=== PATIENT | male | born 1940 | race Caucasian/White ===

== ENCOUNTER 2018-02-19 14:04 | Emergency (ER) | payer MEDICARE ==
[~2018-02-19] VITALS: Ht 182.9 cm; Wt 93.0 kg
--- OUTSIDE RECORDS SUMMARY | 2018-02-19 14:09 | XMS REPORT ---
Author Author RUDY MCGILL Organization [facility] Address [address] [place] [address] Care Team Providers Care Wrister Name Role Phone RUDY MCGILL Unavailable PROBLEMS Unknown Problems ALLERGIES No Information ENCOUNTERS Encounter Location Date Diagnosis [facility] [address] [facility] [id number] [address] Jan, [facility] [address] [facility] [id number], [place] [address] Jan, IMMUNIZATIONS No Known Immunizations SOCIAL HISTORY Never Assessed REASON FOR VISIT narcotic refill PLAN OF CARE VITAL SIGNS MEDICATIONS Medication Instructions Dosage Frequency Start Date End Date Duration Status Hydrocodone-Acetaminophen 5-325 MG Orally every 4-6 hours as needed 1 tablet as needed Jan, 7 days Active RESULTS No Results PROCEDURES No Known procedures INSTRUCTIONS MEDICATIONS ADMINISTERED No Known Medications MEDICAL (GENERAL) HISTORY Type Description Date Surgical History cholecystectomy Surgical History pacemaker placement Surgical History stent placement Surgical History pacemaker batter change X2 Surgical History VA Cystourethroscopy Surgical History cystoscopy Surgical History Cysctourethroscopy left Surgical History VA drain skin abscess simple Surgical History pr ERCP, RMV FB/Change stent left Surgical History Stent removal Surgical History VA fragment kidney stone/eswl left Surgical History Extracorporeal shock wave lithotripsy left renal
[2018-02-19 14:28] LABS: BASOPHILS % (AUTO) 0 % (0-10); EOSINOPHILS % (AUTO) 0 % (0-10); HEMATOCRIT 32 % (40-54); HEMOGLOBIN 11.2 G/DL (13.3-17.7); LYMPHOCYTES # (AUTO) 0.4 X 10^3 (1.0-4.0); LYMPHOCYTES % (AUTO) 2 % (12-44); MEAN CORPUSCULAR HEMOGLOBIN 32 PG (25-34); MEAN CORPUSCULAR HGB CONC 36 G/DL (32-36); MEAN CORPUSCULAR VOLUME 90 FL (80-99); MEAN PLATELET VOLUME 10.3 FL (7.4-10.4); MONOCYTES # (AUTO) 0.4 X 10^3 (0.0-1.0); MONOCYTES % (AUTO) 2 % (0-12); NEUTROPHILS # (AUTO) 19.8 X 10^3 (1.8-7.8); NEUTROPHILS % (AUTO) 96 % (42-75); PLATELET COUNT 208 10^3/uL (130-400); RED CELL DISTRIBUTION WIDTH 18.6 % (10.0-14.5); WHITE BLOOD COUNT 20.7 10^3/uL (4.3-11.0)
[2018-02-19] MEDS: DEXTROSE 50% 50 ML (IMS) SYR IV ONE ×2 (14:30→17:05)
[2018-02-19] MEDS: DEXTROSE 50% 50 ML (IMS) SYR ONE (14:30)
[2018-02-19] MEDS: NS IV 1000 ML 1,000 ML IV ONE (14:35)
[2018-02-19 14:46] LABS: ALBUMIN 2.1 GM/DL (3.2-4.5); BILIRUBIN,TOTAL 2.9 MG/DL (0.1-1.0); CREATININE SERUM 2.14 MG/DL (0.60-1.30); TOTAL PROTEIN 6.1 GM/DL (6.4-8.2)
[2018-02-19 14:48] LABS: ANISOCYTOSIS MODERATE; BAND NEUTROPHILS 16 %; LYMPHOCYTES % (MANUAL) 1 %; MICROCYTOSIS SLIGHT; MONOCYTES % (MANUAL) 1 %; NEUTROPHILS % (MANUAL) 82 %; POIKILOCYTOSIS SLIGHT
[2018-02-19 14:49] LABS: CRENATED RBC SLIGHT; SCHISTOCYTES SLIGHT; TOXIC GRANULATION/VACUOLAZATIO 1+
[2018-02-19 14:51] LABS: INR 6.7 (0.8-1.4); PROTHROMBIN TIME PATIENT 59.1 SEC (12.2-14.7)
[2018-02-19 14:52] LABS: BILIRUBIN,URINE NEGATIVE (NEGATIVE); CLARITY,URINE SLIGHTLY CLOUDY; COLOR,URINE AMBER; GLUCOSE, URINE (UA) NEGATIVE (NEGATIVE); KETONES,URINE NEGATIVE (NEGATIVE); LEUKOCYTE ESTERASE ,URINE 1+ (NEGATIVE); NITRITE,URINE NEGATIVE (NEGATIVE); PH,URINE 7 (5-9); PROTEIN,URINE 2+ (NEGATIVE); UROBILINOGEN,URINE 1 MG/DL (NORMAL)
[2018-02-19] MEDS: fentaNYL INJECTION 100 MCG/2 ML AMP IVP ONE ×2 (14:58→17:05)
[2018-02-19] MEDS: fentaNYL INJECTION 100 MCG/2 ML AMP ONE (14:58)
[2018-02-19 15:05] LABS: BACTERIA,URINE LARGE /HPF; WBC,URINE 0-2 /HPF
--- NOTE | 2018-02-19 15:09 | ED General ---
General Chief Complaint: General Problems/Pain Stated Complaint: AMS;WEAKNESS Nursing Triage Note: pt brought in by ems from via [facility] with complaint of altered mental status, decreased o2 sats, and low blood sugar. pt has been at [facility] for a week and has had decrease in mentation. pt is complaining of low back pain. for ems, pts blood glucose was 57. given oral glucose. Nursing Sepsis Screen: No Definite Risk Source of Information: Patient, Caregiver, EMS, Retirement Records Exam Limitations: No Limitations History of Present Illness Date Seen by Provider: Feb 19, 2018 Time Seen by Provider: 14:06 Initial Comments This 78-year-old man presents to the emergency room via [facility] with primary complaint of altered mental status. He has been a resident for about one week and has had declining mental status during that time. Staff reports he seems lethargic. He reportedly was hypoxic with an oxygen saturation of 83 percent. EMS notes vital signs are stable with oxygen saturations in the upper 90s on room air. Review of his chart notes he has had multiple hypotensive measurements over the past few days. Patient complains of lower back and lower abdominal pain. His INR measured at the long-term was 6.0. He is on warfarin therapy for atrial fibrillation. EMS reported fingerstick blood sugar was 61. Oral glucose was given. Blood sugar on assessment was 57. Patient states he is in the long-term because of falls. He has dressings on his lower extremities and apparently has chronic lower extremity skin wounds. Allergies and Home Medications Allergies Coded Allergies: No Known Drug Allergies (Unverified , 02/19/18) Patient Home Medication List Home Medication List Reviewed: Yes Review of Systems Review of Systems Constitutional: no symptoms reported EENTM: no symptoms reported Respiratory: see HPI Cardiovascular: no symptoms reported Gastrointestinal: no symptoms reported Genitourinary: no symptoms reported Musculoskeletal: see HPI Skin: no symptoms reported Psychiatric/Neurological: See HPI Hematologic/Lymphatic: No Symptoms Reported Immunological/Allergic: no symptoms reported Past Tkiudar-Pcrrdq-Uvolem Hx Past Med/Social Hx: Reviewed and Corrections made Patient Social History Alcohol Use: Denies Use Recreational Drug Use: No Smoking Status: Never a Smoker Recent Foreign Travel: No Contact w/Someone Who Travel: No Recent Infectious Disease Expo: No Recent Hopitalizations: No Immunizations Up To Date Tetanus Booster (TDap): Unknown Seasonal Allergies Seasonal Allergies: No Past Medical History Surgeries: Yes Gallbladder, Pacemaker Respiratory: No Cardiac: Yes (pacemaker) Atrial Fibrillation, Heart Murmur, Hypertension Neurological: No Genitourinary: Yes UTI-Chronic Gastrointestinal: Yes Abdominal Hernia Musculoskeletal: Yes Chronic Back Pain Endocrine: Yes Diabetes, Non-Insulin dep HEENT: No Cancer: No Psychosocial: No Integumentary: Yes (chronic lower extremity skin wounds) Physical Exam Vital Signs Vital Signs - First Documented 02/19/18 02/19/18 14:08 16:40 Temp 99.3 Pulse 71 Resp 17 B/P (MAP) 105/53 (70) Pulse Ox 94 O2 Delivery Room Air O2 Flow Rate 2.00 Capillary Refill : Less Than 3 Seconds Height, Weight, BMI Height: 6'0" Weight: 205lbs. oz. 92.329388ph; BMI Method:Stated General Appearance: WD/WN, Mild Distress (from back pain) HEENT: PERRL/EOMI, Normal ENT Inspection, Pharynx Normal Neck: Normal Inspection Respiratory: Lungs Clear, Normal Breath Sounds, No Accessory Muscle Use, No Respiratory Distress Cardiovascular: Systolic Murmur, Irregularly Irregular, Other (lower extremity edema bilaterally) Gastrointestinal: Normal Bowel Sounds, Soft, Tenderness (suprapubic region) Extremity: Swelling, Other (dressings on lower extremities below the knee) Neurologic/Psychiatric: Alert, Oriented x3 (disoriented to place), No Motor/ Sensory Deficits, Normal 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, 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 as 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 Skin: Normal Color, Warm/Dry, Other (chronic wounds on the lower extremities that are dressed) Focused Exam Lactate Level 02/19/18 15:47: Lactic Acid Level 5.61*H Lactic Acid Level Laboratory Tests Test 02/19/18 15:47 Lactic Acid Level 5.61 MMOL/L (0.50-2.00) *H Progress/Results/Core Measures Suspected Sepsis Recent Fever Within 48 Hours: No Infection Criteria Present: None New/Unexplained Altered Menta: No Sepsis Screen: No Definite Risk SIRS Temperature:99.3 Pulse: 71 Respiratory Rate: 17 Laboratory Tests 02/19/18 14:15: White Blood Count 20.7H Blood Pressure 105 /53 Mean: 70 02/19/18 15:47: Lactic Acid Level 5.61*H Laboratory Tests 02/19/18 14:15: Creatinine 2.14H, INR Comment 6.7*H, Platelet Count 208, Total Bilirubin 2.9H Results/Orders Lab Results Laboratory Tests Test 02/19/18 14:15 02/19/18 14:16 02/19/18 14:35 02/19/18 14:40 Range/Units White Blood Count 20.7 H 4.3-11.0 10^3/uL Red Blood Count 3.50 L 4.35-5.85 10^6/uL Hemoglobin 11.2 L 13.3-17.7 G/DL Hematocrit 32 L 40-54 % Mean Corpuscular Volume 90 80-99 FL Mean Corpuscular Hemoglobin 32 25-34 PG Mean Corpuscular Hemoglobin Concent 36 32-36 G/DL Red Cell Distribution Width 18.6 H 10.0-14.5 % Platelet Count 208 130-400 10^3/uL Mean Platelet Volume 10.3 7.4-10.4 FL Neutrophils (%) (Auto) 96 H 42-75 % Lymphocytes (%) (Auto) 2 L 12-44 % Monocytes (%) (Auto) 2 0-12 % Eosinophils (%) (Auto) 0 0-10 % Basophils (%) (Auto) 0 0-10 % Neutrophils # (Auto) 19.8 H 1.8-7.8 X 10^3 Lymphocytes # (Auto) 0.4 L 1.0-4.0 X 10^3 Monocytes # (Auto) 0.4 0.0-1.0 X 10^3 Eosinophils # (Auto) 0.0 0.0-0.3 10^3/uL Basophils # (Auto) 0.0 0.0-0.1 10^3/uL Neutrophils % (Manual) 82 % Lymphocytes % (Manual) 1 % Monocytes % (Manual) 1 % Band Neutrophils 16 % Toxic Granulation 1+ Poikilocytosis SLIGHT Anisocytosis MODERATE Microcytosis SLIGHT Macrocytosis SLIGHT Crenated Cell SLIGHT Schistocytes SLIGHT Prothrombin Time 59.1 *H 12.2-14.7 SEC INR Comment 6.7 *H 0.8-1.4 Sodium Level 128 L 135-145 MMOL/L Potassium Level 5.0 3.6-5.0 MMOL/L Chloride Level 94 L 98-107 MMOL/L Carbon Dioxide Level 21 21-32 MMOL/L Anion Gap 13 5-14 MMOL/L Blood Urea Nitrogen 49 H 7-18 MG/DL Creatinine 2.14 H 0.60-1.30 MG/DL Estimat Glomerular Filtration Rate 30 BUN/Creatinine Ratio 23 Glucose Level 57 *L 70-105 MG/DL Calcium Level 8.0 L 8.5-10.1 MG/DL Corrected Calcium 9.5 8.5-10.1 MG/DL Total Bilirubin 2.9 H 0.1-1.0 MG/DL Aspartate Amino Transf (AST/SGOT) 84 H 5-34 U/L Alanine Aminotransferase (ALT/SGPT) 32 0-55 U/L Alkaline Phosphatase 171 H 40-136 U/L Troponin I 1.75 *H <0.30 NG/ML C-Reactive Protein High Sensitivity 28.55 H 0.00-0.50 MG/DL B-Type Natriuretic Peptide 4305.3 H <100.0 PG/ML Total Protein 6.1 L 6.4-8.2 GM/DL Albumin 2.1 L 3.2-4.5 GM/DL Lipase 10 8-78 U/L Thyroid Stimulating Hormone (TSH) 3.08 0.35-4.94 UIU/ML Free Thyroxine 1.00 0.70-1.48 NG/DL Glucometer 57 *L 70 70-110 MG/DL Urine Color SHAD H Urine Clarity SLIGHTLY CLOUDY Urine pH 7 5-9 Urine Specific [place] 1.005 L 1.016-1.022 Urine Protein 2+ H NEGATIVE Urine Glucose (UA) NEGATIVE NEGATIVE Urine Ketones NEGATIVE NEGATIVE Urine Nitrite NEGATIVE NEGATIVE Urine Bilirubin NEGATIVE NEGATIVE Urine Urobilinogen 1 NORMAL MG/DL Urine Leukocyte Esterase 1+ H NEGATIVE Urine RBC (Auto) 5+ H NEGATIVE Urine RBC 2-5 H /HPF Urine WBC 0-2 /HPF Urine Crystals NONE /LPF Urine Bacteria LARGE H /HPF Urine Casts NONE /LPF Urine Mucus NEGATIVE /LPF Urine Culture Indicated YES Test 02/19/18 15:14 02/19/18 15:47 02/19/18 16:50 Range/Units Glucometer 77 69 L 70-110 MG/DL Lactic Acid Level 5.61 *H 0.50-2.00 MMOL/L My Orders Orders - TREY REGAN MD BNP (02/19/18 14:06) Cbc With Automated Diff (02/19/18 14:06) Comprehensive Metabolic Panel (02/19/18 14:06) Hs C Reactive Protein (02/19/18 14:06) Lipase (02/19/18 14:06) Protime With Inr (02/19/18 14:06) Thyroid Stimulating Hormone (02/19/18 14:06) Troponin I (02/19/18 14:06) Ua Culture If Indicated (02/19/18 14:06) Saline Lock/Iv-Start (02/19/18 14:06) Ekg Tracing (02/19/18 14:06) Monitor-Rhythm Ecg Trace Only (02/19/18 14:06) Chest 1 View, Ap/Pa Only (02/19/18 14:06) Ct Abdomen/Pelvis Wo (02/19/18 14:06) Ct Head Wo (02/19/18 14:06) Free T4 (Free Thyroxine) (02/19/18 14:06) D50w (Emergency) Syringe (Dextrose 50% 5 (02/19/18 14:30) Saline Lock/Iv-Start (02/19/18 14:20) Ns Iv 1000 Ml (Sodium Chloride 0.9%) (02/19/18 14:20) D50w (Emergency) Syringe (Dextrose 50% 5 (02/19/18 14:20) Manual Differential (02/19/18 14:15) Accucheck Stat ONCE (02/19/18 14:36) Accucheck Stat ONCE (02/19/18 14:36) Fentanyl Injection (Sublimaze Injection (02/19/18 15:00) Fentanyl Injection (Sublimaze Injection (02/19/18 14:55) Urine Culture (02/19/18 14:35) Piperacillin Sodium/Tazobactam (Zosyn Vi (02/19/18 15:30) Blood Culture (02/19/18 15:22) Lactic Acid Analyzer (02/19/18 15:22) D50w (Emergency) Syringe (Dextrose 50% 5 (02/19/18 17:00) Fentanyl Injection (Sublimaze Injection (02/19/18 17:00) Medications Given in ED Current Medications Medications Dose Ordered Sig/Hitesh Route Start Time Stop Time Status Last Admin Dose Admin Dextrose 25 ml ONCE ONCE IV 02/19/18 14:30 02/19/18 14:31 DC 02/19/18 14:30 50 ML Dextrose 50 ml ONCE ONCE IV 02/19/18 17:00 02/19/18 17:01 DC 02/19/18 17:05 50 ML Fentanyl Citrate 25 mcg ONCE ONCE IVP 02/19/18 15:00 02/19/18 15:01 DC 02/19/18 14:58 25 MCG Fentanyl Citrate 25 mcg ONCE ONCE IVP 02/19/18 17:00 02/19/18 17:01 DC 02/19/18 17:05 25 MCG Piperacillin Sod/ Tazobactam Sod 4.5 gm/Sodium Chloride 100 ml @ 200 mls/hr ONCE ONCE IV 02/19/18 15:30 02/19/18 15:59 DC 02/19/18 15:50 200 MLS/HR Sodium Chloride 1,000 ml @ 0 mls/hr Q0M ONCE IV 02/19/18 14:20 02/19/18 14:22 DC 02/19/18 14:35 1,000 MLS/HR Vital Signs/I&O 02/19/18 02/19/18 02/19/18 14:08 16:40 17:13 Temp 99.3 Pulse 71 67 67 Resp 17 24 20 B/P (MAP) 105/53 (70) 92/55 (67) 95/52 (66) Pulse Ox 94 94 98 O2 Delivery Room Air Nasal Cannula Nasal Cannula O2 Flow Rate 2.00 2.00 Capillary Refill : Less Than 3 Seconds Blood Pressure Mean: 70 Progress Note #1: Time: 15:35 Progress Note Patient was hypotensive early in his ER stay. We were able to resuscitate his blood pressure with 900 mL of normal saline. IV saline infusion was stopped once the BNP and pleural effusions were noted on workup. CT showed numerous problems including a large amount of stool in the colon, fluid that is likely ascites in the abdomen and pelvis, an obstructing ureteral stone on the left, and pleural effusions with possible pneumonia. Patient is presumed to be septic , possibly from urine or lung. I question skin integrity as well. Patient declines to be rolled for evaluation of his back. He does have wounds dressed on his legs. Zosyn was ordered for initial antibiotic therapy. I discussed CODE STATUS with the patient and he wishes to remain full code despite his tuberous health issues. Progress Note #2: Time: 16:34 Progress Note Case was discussed with Dr. Simon. She believes patient should be transferred back to [facility] because of his numerous health issues and very guarded status. Patient is likely to decompensate and will be in need of specialty services such as nephrology. Also, there is value in continuity of care since he was just discharged from [facility] about a week ago. Patient is agreeable to transfer after discussion of risks and benefits. I revisited the CODE STATUS conversation and patient is thinking about that further but wishes to remain full code at this time. Zosyn was administered for initial antibiotic therapy after blood cultures were drawn. Case was discussed with Dr. Ruth Irby at [facility] in [place] who accepts the transfer. We're awaiting confirmation of room at this time. Progress Note #3: Progress Note Fingerstick blood sugar just prior to departure was 65. Another amp of D50 was administered. Patient also requested something for pain just prior to departure. Fentanyl 25 g was given. ECG Initial ECG Impression Date: Feb 19, 2018 Initial ECG Impression Time: 14:25 Initial ECG Rate: 142 (automated read states rate of 142. Actual rate is likely 70-80) Initial ECG Rhythm: A Fib/Flutter Initial ECG Impression: Atrial Fibrillation Comment Atrial fibrillation with questionable paced beats and/or PVCs. No overt ST elevation or depression. Diagnostic Imaging Diagonstic Imaging: CT Plain Films/CT/US/NM/MRI: head Comments CT head viewed by me and report reviewed. See report below: NAME: MARIZA PONCE MED REC#: [id number] PT STATUS: REG ER : 1940 PHYSICIAN: TREY REGAN MD ADMIT DATE: 02/19/18/ER Draft Date of Exam:02/19/18 CT HEAD WO PROCEDURE: CT head without contrast. TECHNIQUE: Multiple contiguous axial images were obtained through the brain without the use of intravenous contrast. INDICATION: Confusion, altered mental status. FINDINGS: There are no prior studies available for comparison. There is no mass, shift of the midline, or hemorrhage to suggest an acute intracranial abnormality. There is no sign of an asymmetric hyperdense vessel either. The ventricles are prominent. The size of the ventricles is probably related to the underlying cortical atrophy. There are also vague areas of low density in the periventricular white matter and basal ganglia bilaterally, particularly on the left. There also appears to be diminished density within the lower booker just to the right of midline. These findings are nonspecific but may be secondary to encephalomalacia from microvascular ischemia. The bone windows show no sign of a fracture or of a destructive lesion. The orbits are symmetrical and within normal limits. The sinuses are generally clear. IMPRESSION: 1. There is no evidence for an acute intracranial abnormality. 2. If clinical concern regarding an underlying abnormality persists, then a short-term (24-hour) follow-up CT head exam will be recommended for further study. The patient does have a pacemaker in place and this would preclude further evaluation by MRI. 3. These results were discussed with Dr. Regan in the ER. Dictated on workstation # [id number] Dict: 02/19/18 1515 Trans: 02/19/18 1527 [id number] Interpreted by: TARYN GAN MD Diagonstic Imaging: CT Plain Films/CT/US/NM/MRI: abdomen, pelvis Comments CT abdomen and pelvis viewed by me and report reviewed. Discussed with the radiologist. Dr. Gan believe fluid in the abdomen was likely ascites fluid rather than blood. See report below: NAME: MARIZA PONCE MED REC#: [id number] PT STATUS: REG ER : 1940 PHYSICIAN: TREY REGAN MD ADMIT DATE: 02/19/18/ER Signed Date of Exam: 02/19/18 CT ABDOMEN/PELVIS WO PROCEDURE: CT abdomen and pelvis without contrast. TECHNIQUE: Multiple contiguous axial images were obtained through the abdomen and pelvis without the use of intravenous contrast. INDICATION: Weakness, severe back pain. COMPARISON: There are no prior studies available for comparison. There is a 6 MM calculus in the midportion of the left ureter. The ureter proximal to the calculus is dilated. Most likely there is partial obstruction of the left collecting system. There is also a roughly 1 CM calculus in the inferior pole of the right kidney. There is no evidence for obstruction of the right collecting system however. 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 There is also bibasilar pneumonia/atelectasis and bilateral pleural effusions. The effusion on the right measures 6.3 CM in maximum depth while the left sided effusion is estimated to be 7.1 CM. The central pulmonary vascularity is also increased and most likely there is an element of pulmonary congestion present as well. In addition, there is increased density throughout the subcutaneous fat of each flank and the pelvis. This does suggest anasarca. There is also a small amount of somewhat dense fluid anterior to the liver and low in the pelvis. This could be related to ascites. The possibility that there is an element of hemorrhage within the ascites should also be considered. There is a considerable amount of fecal material throughout the rectosigmoid portion of the colon. There is also a Shen catheter within the bladder. The bladder is decompressed and consequently difficult to assess. The prostate gland is not enlarged. There is a retroumbilical hernia containing a few segments of small bowel. There is no incarceration of the bowel however. The liver does not appear enlarged. The spleen is also normal in size. There is a 1.7 CM rounded area of low density associated with the body of the pancreas. This may represent a benign cyst. A pancreatic cystic neoplasm cannot be entirely excluded. The aorta, adrenals and inferior vena cava show no sign acute abnormality. The gallbladder is surgically absent. The stomach is not well-distended and consequently difficult to assess. The bone windows show no evidence for a fracture or for a destructive lesion. 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 There does appear to be spinal stenosis at the L2-3 level due to a disc osteophyte complex. There is also trefoil stenosis at L3-4, L4-5 and L5-S1. Impression: 1. There is bibasal pneumonia/atelectasis and pulmonary congestion. The increased density in the subcutaneous fat of each flank and pelvis does suggest anasarca. There is also a small amount of slightly dense fluid in the abdomen and pelvis. 2. There is obstruction of the left collecting system due to a 6 MM calculus in the midportion of the left ureter. There is also a roughly 1 CM nonobstructive calculus in the right kidney. 3. There is a retroumbilical hernia containing several segments of small bowel. There is no incarceration or obstruction of the bowel. 4. There is severe degenerative disc and bony disease involving the lumbar spine. Dictated by: Dictated on workstation # [id number] Dict: 02/19/18 1529 Trans: 02/19/18 1619 Interpreted by: TARYN GAN MD Electronically signed by: TARYN GAN MD 02/19/18 1619 Diagonstic Imaging: Xray Comments Chest x-ray viewed by me and report reviewed. See report below: NAME: MARIZA PONCE MED REC#: [id number] PT STATUS: REG ER : 1940 PHYSICIAN: TREY REGAN MD ADMIT DATE: 02/19/18/ER Draft Date of Exam:02/19/18 CHEST 1 VIEW, AP/PA ONLY Indication: Altered mental status. Portable chest 2:55 PM There is cardiomegaly. There is pulmonary vascularity and congestion and some interstitial edema. There is unipolar pacemaker. Impression: Congestive heart failure. Dictated on workstation # [id number] Dict: 02/19/18 1508 Trans: 02/19/18 1511 [id number] [id number] Interpreted by: ANALILIA BRODERICK MD Departure Impression Primary Impression: Sepsis Qualified Codes: A41.9 - Sepsis, unspecified organism Additional Impressions: Supratherapeutic INR Bilateral pleural effusion Urinary tract infection Qualified Codes: N39.0 - Urinary tract infection, site not specified Renal failure Qualified Codes: N19 - Unspecified kidney failure Hyponatremia Hypoglycemia Fluid overload Qualified Codes: E87.70 - Fluid overload, unspecified Elevated troponin Lower back pain Qualified Codes: M54.5 - Low back pain Lower abdominal pain Disposition: XF SHT-TRM HOSP Condition: Improved Transfer Time Spoke to Accepting Phy: 16:30 Transfer Facility: Dr. Irby at [facility] Method of Transfer: EMS Departure-Patient Inst. Referrals: HARRIS NUNN MD (PCP/Family) Primary Care Physician TREY REGAN MD Feb 19, 2018 15:09
--- NOTE | 2018-02-19 15:12 | Diagnostic Imaging Report ---
Indication: Altered mental status. Portable chest 2:55 PM There is cardiomegaly. There is pulmonary vascularity and congestion and some interstitial edema. There is unipolar pacemaker. Impression: Congestive heart failure. Dictated by: Dictated on workstation # [id number]
--- NOTE | 2018-02-19 15:28 | Diagnostic Imaging Report ---
PROCEDURE: CT head without contrast. TECHNIQUE: Multiple contiguous axial images were obtained through the brain without the use of intravenous contrast. INDICATION: Confusion, altered mental status. FINDINGS: There are no prior studies available for comparison. There is no mass, shift of the midline, or hemorrhage to suggest an acute intracranial abnormality. There is no sign of an asymmetric hyperdense vessel either. The ventricles are prominent. The size of the ventricles is probably related to the underlying cortical atrophy. There are also vague areas of low density in the periventricular white matter and basal ganglia bilaterally, particularly on the left. There also appears to be diminished density within the lower booker just to the right of midline. These findings are nonspecific but may be secondary to encephalomalacia from microvascular ischemia. The bone windows show no sign of a fracture or of a destructive lesion. The orbits are symmetrical and within normal limits. The sinuses are generally clear. IMPRESSION: 1. There is no evidence for an acute intracranial abnormality. 2. If clinical concern regarding an underlying abnormality persists, then a short-term (24-hour) follow-up CT head exam will be recommended for further study. The patient does have a pacemaker in place and this would preclude further evaluation by MRI. 3. These results were discussed with Dr. Regan in the ER. Dictated by: Dictated on workstation # [id number]
[2018-02-19] MEDS: PIPERACILLIN SODIUM/TAZOBACTAM 4.5 GM in NS (IVPB) 100 ML IV ONE (15:50)
--- NOTE | 2018-02-19 16:02 | Diagnostic Imaging Report ---
PROCEDURE: CT abdomen and pelvis without contrast. TECHNIQUE: Multiple contiguous axial images were obtained through the abdomen and pelvis without the use of intravenous contrast. INDICATION: Weakness, severe back pain. COMPARISON: There are no prior studies available for comparison. There is a 6 MM calculus in the midportion of the left ureter. The ureter proximal to the calculus is dilated. Most likely there is partial obstruction of the left collecting system. There is also a roughly 1 CM calculus in the inferior pole of the right kidney. There is no evidence for obstruction of the right collecting system however. 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 There is also bibasilar pneumonia/atelectasis and bilateral pleural effusions. The effusion on the right measures 6.3 CM in maximum depth while the left sided effusion is estimated to be 7.1 CM. The central pulmonary vascularity is also increased and most likely there is an element of pulmonary congestion present as well. In addition, there is increased density throughout the subcutaneous fat of each flank and the pelvis. This does suggest anasarca. There is also a small amount of somewhat dense fluid anterior to the liver and low in the pelvis. This could be related to ascites. The possibility that there is an element of hemorrhage within the ascites should also be considered. There is a considerable amount of fecal material throughout the rectosigmoid portion of the colon. There is also a Shen catheter within the bladder. The bladder is decompressed and consequently difficult to assess. The prostate gland is not enlarged. There is a retroumbilical hernia containing a few segments of small bowel. There is no incarceration of the bowel however. The liver does not appear enlarged. The spleen is also normal in size. There is a 1.7 CM rounded area of low density associated with the body of the pancreas. This may represent a benign cyst. A pancreatic cystic neoplasm cannot be entirely excluded. The aorta, adrenals and inferior vena cava show no sign acute abnormality. The gallbladder is surgically absent. The stomach is not well-distended and consequently difficult to assess. The bone windows show no evidence for a fracture or for a destructive lesion. 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 There does appear to be spinal stenosis at the L2-3 level due to a disc osteophyte complex. There is also trefoil stenosis at L3-4, L4-5 and L5-S1. Impression: 1. There is bibasal pneumonia/atelectasis and pulmonary congestion. The increased density in the subcutaneous fat of each flank and pelvis does suggest anasarca. There is also a small amount of slightly dense fluid in the abdomen and pelvis. 2. There is obstruction of the left collecting system due to a 6 MM calculus in the midportion of the left ureter. There is also a roughly 1 CM nonobstructive calculus in the right kidney. 3. There is a retroumbilical hernia containing several segments of small bowel. There is no incarceration or obstruction of the bowel. 4. There is severe degenerative disc and bony disease involving the lumbar spine. Dictated by: Dictated on workstation # [id number]
[2018-02-19 16:40] VITALS: BP 92/55
[2018-02-19 17:13] VITALS: BP 95/52
== END 2018-02-19 17:13 | disposition short-term general hospital (02) ==
LOC: EDUNIT# 14:04 → ER 14:06
DX: A41.9 Sepsis, unspecified organism (principal); N39.0 Urinary tract infection, site not specified; J90 Pleural effusion, not elsewhere classified; N19 Unspecified kidney failure; E87.1 Hypo-osmolality and hyponatremia; E16.2 Hypoglycemia, unspecified; E87.70 Fluid overload, unspecified; M54.5 Low back pain; R10.30 Lower abdominal pain, unspecified; R79.89 Other specified abnormal findings of blood chemistry; I48.91 Unspecified atrial fibrillation; I10 Essential (primary) hypertension; E11.9 Type 2 diabetes mellitus without complications; Z87.19 Personal history of other diseases of the digestive system; Z87.440 Personal history of urinary (tract) infections; Z95.0 Presence of cardiac pacemaker; Z79.01 Long term (current) use of anticoagulants
CPT/HCPCS: 36415; 70450; 71045; 74176; 80053; 81000; 82962; 83605; 83690; 83880; 84439; 84443; 84484; 85007; 85027; 85610; 86141; 87040; 87077; 87088; 87186; 93041